=== PATIENT | female | born 1975 | race Caucasian/White ===

== ENCOUNTER 2019-04-15 17:23 | Emergency (ER) | payer MEDICAID ==
[~2019-04-15] VITALS: Ht 157.5 cm; Wt 45.5 kg
[2019-04-15 17:37] VITALS: BP 149/91
[2019-04-15] MEDS ORDERED: LIDOCAINE 1%, 10ML INFIL ONE (18:00)
--- NOTE | 2019-04-15 18:12 | NUR ---
PT AMBULATORY TO RME FROM LOBBY WITH STEADY GAIT. NAD NOTED. RESP REGULAR AND UNLABORED. JJ PA AT BEDSIDE FOR EVALUATION. CALL LIGHT IN REACH. FALL PRECAUTIONS IN PLACE.
--- NOTE | 2019-04-15 18:20 | NUR ---
EVELYNE PA AT BEDSIDE TO ADMIN LIDO
--- NOTE | 2019-04-15 18:47 | NUR ---
REPORT AND CARE TO JAYLON RAJAN AT THIS TIME.
[2019-04-15] MEDS ORDERED: ACETAMINOPHEN 325 MG TABLET ONE (21:18)
== END 2019-04-15 19:09 | disposition home or self-care (01) ==
LOC: ED 19:03
DX: L02.416 Cutaneous abscess of left lower limb (principal); F11.20 Opioid dependence, uncomplicated; F15.20 Other stimulant dependence, uncomplicated; F17.200 Nicotine dependence, unspecified, uncomplicated
CPT/HCPCS: 10060; 99283

== ENCOUNTER 2020-08-16 03:42 | Inpatient (IN) | payer MEDICAID ==
[~2020-08-16] VITALS: Ht 157.5 cm; Wt 52.3 kg
[~2020-08-16 03:42] MED LIST: AMOX1TAB64 PO; METH10TA2 PO; NICO-487 TD; ONDA4TAB13 PO; SULF1TAB24 PO
[2020-08-16] MEDS ORDERED: VANCOMYCIN PER PHARMACY MC ONE (05:00)
[2020-08-16] MEDS ORDERED: ONDANSETRON 2MG/ML, 2ML IVPush ONE (05:00)
[2020-08-16] MEDS ORDERED: MORPHINE SULFATE 4 MG/ML, 1ML IVPush PRN (05:00)
[2020-08-16] MEDS ORDERED: SODIUM CHLORIDE 0.9% 1,000ML IVBOLUS ONE (05:00)
[2020-08-16] MEDS ORDERED: MORPHINE SULFATE 4 MG/ML, 1ML ONE (05:13)
[2020-08-16] MEDS ORDERED: ONDANSETRON 2MG/ML, 2ML ONE (05:13)
[2020-08-16 05:27] LABS: BASOPHILS % (AUTO) 1 % (0-1); EOSINOPHILS % (AUTO) 1 % (1-7); LYMPHOCYTES % (AUTO) 13 % (22-44); MEAN CORPUSCULAR HEMOGLOBIN 25.8 pg (27.0-34.8); MEAN PLATELET VOLUME 8.1 fL (7.4-10.4); MONOCYTES % (AUTO) 6 % (2-9); NEUTROPHILS % (AUTO) 79 % (42-75); PLATELET COUNT 502 x10^3/uL (130-400); RED BLOOD COUNT 4.24 x10^6/uL (3.82-5.3); RED CELL DISTRIBUTION WIDTH 17.2 % (9.6-15.2)
[2020-08-16] MEDS ORDERED: VANCOMYCIN 1,200 MG in SODIUM CHLORIDE 0.9% 250 ML IV ONE (05:30)
[2020-08-16] MEDS ORDERED: LIDOCAINE-MPF 2% ,5ML SQ ONE (05:30)
[2020-08-16] MEDS ORDERED: LIDOCAINE-MPF 2% ,5ML ONE (05:32)
[2020-08-16 05:34] LABS: ALBUMIN 2.5 g/dL (3.4-5.0); ANION GAP 6 mmol/L (5-15); CALCIUM 8.3 mg/dL (8.5-10.1); CHLORIDE 103 mmol/L (98-107)
[2020-08-16 05:40] LABS: C-REACTIVE PROTEIN, QUANT 8.48 mg/dL (0.02-0.49)
[2020-08-16 06:00] LABS: MD SCAN
[2020-08-16] MEDS ORDERED: OMNIPAQUE 350 MG/ML, 100ML BOTTLE ONE (06:43)
--- NOTE | 2020-08-16 07:01 | NUR ---
REPORT TO PEDRO RAJAN
[2020-08-16] MEDS ORDERED: ACETAMINOPHEN 325 MG TABLET PO PRN (07:30)
[2020-08-16] MEDS ORDERED: IBUPROFEN 600 MG TABLET PO PRN (07:30)
[2020-08-16] MEDS ORDERED: LABETALOL 5MG/ML, 20ML IVPush PRN (07:30)
[2020-08-16] MEDS ORDERED: ENALAPRILAT 1.25 MG/ML, 2ML IVPush PRN (07:30)
[2020-08-16] MEDS ORDERED: LACTATED RINGERS 1,000 ML IV ONE (07:30)
[2020-08-16] MEDS ORDERED: VANCOMYCIN PER PHARMACY MC PRN (07:30)
--- NOTE | 2020-08-16 08:37 | NUR ---
PT RECEIVED MEAL TRAY. DENIES FURTHER NEEDS
[2020-08-16] MEDS ORDERED: PHARMACOKINETIC CONSULTATION MC ONE (10:00)
[2020-08-16] MEDS ORDERED: PHARMACOKINETIC MONITORING MC PRN (10:00)
[2020-08-16] MEDS: SENNA/DOCUSATE TABLET PO SCH (10:35)
[2020-08-16] MEDS: KETOROLAC 30 MG/1 ML IV PRN ×2 (11:18→21:03)
[2020-08-16] MEDS ORDERED: METHADONE 10 MG TABLET PO ONE (12:30)
[2020-08-16 12:31] VITALS: BP 102/64
[2020-08-16] MEDS: NICOTINE 21 MG/24 HR PATCH.TD24 TD SCH (13:14)
[2020-08-16] MEDS: METHADONE 10 MG TABLET PO SCH ×2 (13:16→21:03)
[2020-08-16] MEDS: PIPERACILLIN/TAZO/PMX 3.375GM 50 ML IV SCH ×2 (13:17→21:03)
[2020-08-16 20:14] VITALS: BP 121/74
[2020-08-16] MEDS ORDERED: METHADONE 5 MG TABLET PO ONE (23:00)
[2020-08-17 00:54] VITALS: BP 117/76
[2020-08-17] MEDS: PIPERACILLIN/TAZO/PMX 3.375GM 50 ML IV SCH ×3 (04:19→20:23)
[2020-08-17] MEDS: METHADONE 10 MG TABLET PO SCH ×3 (04:19→20:23)
[2020-08-17] MEDS: KETOROLAC 30 MG/1 ML IV PRN ×3 (04:44→20:23)
[2020-08-17] MEDS ORDERED: VANCOMYCIN PMX 1GM/200ML 200 ML IVPB SCH (05:00)
[2020-08-17 05:44] LABS: BASOPHILS % (AUTO) 1 % (0-1); EOSINOPHILS % (AUTO) 4 % (1-7); LYMPHOCYTES % (AUTO) 13 % (22-44); MEAN CORPUSCULAR HEMOGLOBIN 26.2 pg (27.0-34.8); MEAN PLATELET VOLUME 8.4 fL (7.4-10.4); MONOCYTES % (AUTO) 6 % (2-9); NEUTROPHILS % (AUTO) 77 % (42-75); PLATELET COUNT 444 x10^3/uL (130-400); RED BLOOD COUNT 3.74 x10^6/uL (3.82-5.3); RED CELL DISTRIBUTION WIDTH 17.6 % (9.6-15.2)
[2020-08-17 05:51] LABS: ALBUMIN 1.8 g/dL (3.4-5.0); ANION GAP 4 mmol/L (5-15); CHLORIDE 108 mmol/L (98-107); MD NO
[2020-08-17 05:54] LABS: ALKALINE PHOSPHATASE 75 U/L (45-117); BILIRUBIN,TOTAL 0.2 mg/dL (0.2-1.0); CREATININE 0.68 mg/dL (0.55-1.02); TOTAL PROTEIN 5.9 g/dL (6.4-8.2)
[2020-08-17 06:21] LABS: ALANINE AMINOTRANSFERASE < 6 U/L (12-78)
[2020-08-17 07:03] VITALS: BP 130/65
[2020-08-17] MEDS: SENNA/DOCUSATE TABLET PO SCH (09:00)
[2020-08-17] MEDS: NICOTINE 21 MG/24 HR PATCH.TD24 TD SCH (09:05)
[2020-08-17 12:29] VITALS: BP 118/77
[2020-08-17] MEDS ORDERED: METHADONE 10 MG TABLET PO ONE (17:00)
[2020-08-17] MEDS: ONDANSETRON ODT 4 MG PO PRN (18:23)
[2020-08-17 19:28] VITALS: BP 126/77
[2020-08-17] MEDS: MELATONIN 5 MG TABLET PO PRN (20:40)
[2020-08-17] MEDS: ONDANSETRON 2MG/ML, 2ML IVPush PRN (20:40)
[2020-08-17] MEDS: VANCOMYCIN PMX 1GM/200ML 200 ML IVPB SCH (22:29)
[2020-08-18 01:01] VITALS: BP 98/65
[2020-08-18] MEDS: PIPERACILLIN/TAZO/PMX 3.375GM 50 ML IV SCH (04:14)
[2020-08-18] MEDS: METHADONE 10 MG TABLET PO SCH ×3 (04:14→21:13)
[2020-08-18 06:21] LABS: BASOPHILS % (AUTO) 2 % (0-1); EOSINOPHILS % (AUTO) 6 % (1-7); LYMPHOCYTES % (AUTO) 20 % (22-44); MEAN CORPUSCULAR HGB CONC 31.7 g/dL (32.4-35.8); MEAN PLATELET VOLUME 8.1 fL (7.4-10.4); MONOCYTES % (AUTO) 6 % (2-9); NEUTROPHILS % (AUTO) 67 % (42-75); PLATELET COUNT 462 x10^3/uL (130-400); RED BLOOD COUNT 4.29 x10^6/uL (3.82-5.3); RED CELL DISTRIBUTION WIDTH 17.5 % (9.6-15.2)
[2020-08-18 06:33] LABS: ALBUMIN 1.9 g/dL (3.4-5.0); ANION GAP 4 mmol/L (5-15); CALCIUM 8.3 mg/dL (8.5-10.1); CHLORIDE 106 mmol/L (98-107); CREATININE 0.85 mg/dL (0.55-1.02)
[2020-08-18 06:34] LABS: MD NO
[2020-08-18 07:16] VITALS: BP 101/59
[2020-08-18] MEDS: SENNA/DOCUSATE TABLET PO SCH (09:00)
[2020-08-18] MEDS: NICOTINE 21 MG/24 HR PATCH.TD24 TD SCH (09:17)
[2020-08-18] MEDS: KETOROLAC 30 MG/1 ML IV PRN ×2 (09:33→16:02)
[2020-08-18] MEDS: AMPICILLIN/SULBACTAM 3 GM in SODIUM CHLORIDE 0.9% 100 ML IV SCH ×2 (10:34→17:58)
[2020-08-18 12:58] VITALS: BP 103/64
[2020-08-18] MEDS: VANCOMYCIN PMX 1GM/200ML 200 ML IVPB SCH (15:56)
[2020-08-18 18:59] VITALS: BP 109/71
[2020-08-18] MEDS: ONDANSETRON 2MG/ML, 2ML IVPush PRN (20:49)
[2020-08-19 00:47] VITALS: BP 115/66
[2020-08-19] MEDS: BUTALB/APAP/CAFFEINE 50MG/325MG/40MG PO PRN ×2 (00:54→01:27)
[2020-08-19] MEDS: MELATONIN 5 MG TABLET PO PRN ×2 (00:57→21:48)
[2020-08-19] MEDS: KETOROLAC 30 MG/1 ML IV PRN ×3 (01:07→18:08)
[2020-08-19] MEDS: AMPICILLIN/SULBACTAM 3 GM in SODIUM CHLORIDE 0.9% 100 ML IV SCH ×3 (02:04→16:51)
[2020-08-19 05:18] LABS: ALBUMIN 1.9 g/dL (3.4-5.0); ANION GAP 4 mmol/L (5-15); CALCIUM 8.6 mg/dL (8.5-10.1); CHLORIDE 107 mmol/L (98-107)
[2020-08-19 05:19] LABS: CREATININE 0.84 mg/dL (0.55-1.02)
[2020-08-19] MEDS: METHADONE 10 MG TABLET PO SCH ×3 (05:21→21:48)
[2020-08-19 05:23] LABS: BASOPHILS % (AUTO) 1 % (0-1); EOSINOPHILS % (AUTO) 7 % (1-7); LYMPHOCYTES % (AUTO) 22 % (22-44); MEAN CORPUSCULAR HEMOGLOBIN 26.3 pg (27.0-34.8); MEAN CORPUSCULAR HGB CONC 32.4 g/dL (32.4-35.8); MEAN PLATELET VOLUME 7.9 fL (7.4-10.4); MONOCYTES % (AUTO) 7 % (2-9); NEUTROPHILS % (AUTO) 64 % (42-75); PLATELET COUNT 497 x10^3/uL (130-400); RED BLOOD COUNT 3.74 x10^6/uL (3.82-5.3); RED CELL DISTRIBUTION WIDTH 17.5 % (9.6-15.2)
[2020-08-19 05:29] LABS: MD NO
[2020-08-19 07:29] VITALS: BP 101/61
[2020-08-19] MEDS: SENNA/DOCUSATE TABLET PO SCH (09:00)
[2020-08-19] MEDS: NICOTINE 21 MG/24 HR PATCH.TD24 TD SCH (09:34)
[2020-08-19] MEDS: VANCOMYCIN PMX 1GM/200ML 200 ML IVPB SCH ×2 (10:06→22:19)
[2020-08-19 12:39] VITALS: BP 110/65
[2020-08-19] MEDS ORDERED: OMNIPAQUE 350 MG/ML, 100ML BOTTLE ONE (16:06)
[2020-08-19 20:10] VITALS: BP 119/75
[2020-08-20 00:43] VITALS: BP 116/74
[2020-08-20] MEDS: AMPICILLIN/SULBACTAM 3 GM in SODIUM CHLORIDE 0.9% 100 ML IV SCH ×3 (02:11→17:42)
[2020-08-20 05:11] LABS: BASOPHILS % (AUTO) 1 % (0-1); EOSINOPHILS % (AUTO) 8 % (1-7); LYMPHOCYTES % (AUTO) 16 % (22-44); MEAN CORPUSCULAR HGB CONC 32.1 g/dL (32.4-35.8); MEAN PLATELET VOLUME 8.1 fL (7.4-10.4); MONOCYTES % (AUTO) 5 % (2-9); NEUTROPHILS % (AUTO) 70 % (42-75); PLATELET COUNT 460 x10^3/uL (130-400); RED BLOOD COUNT 3.75 x10^6/uL (3.82-5.3)
[2020-08-20 05:17] LABS: CHLORIDE 105 mmol/L (98-107)
[2020-08-20 05:18] LABS: MD NO
[2020-08-20] MEDS: METHADONE 10 MG TABLET PO SCH ×3 (05:26→21:27)
[2020-08-20 05:32] LABS: ANION GAP 5 mmol/L (5-15)
[2020-08-20 06:58] LABS: HCT (SEDRATE) 30.3 % (34.6-47.8)
[2020-08-20 07:33] VITALS: BP 125/77
[2020-08-20] MEDS: SENNA/DOCUSATE TABLET PO SCH (09:00)
[2020-08-20] MEDS: NICOTINE 21 MG/24 HR PATCH.TD24 TD SCH (10:31)
[2020-08-20] MEDS: VANCOMYCIN PMX 1GM/200ML 200 ML IVPB SCH ×2 (10:58→23:02)
[2020-08-20] MEDS: KETOROLAC 30 MG/1 ML IV PRN ×2 (11:10→20:31)
[2020-08-20 12:49] VITALS: BP 128/77
[2020-08-20 18:53] VITALS: BP 119/76
[2020-08-20] MEDS: MELATONIN 5 MG TABLET PO PRN (21:38)
[2020-08-21] MEDS: AMPICILLIN/SULBACTAM 3 GM in SODIUM CHLORIDE 0.9% 100 ML IV SCH ×3 (02:09→17:35)
[2020-08-21 02:10] VITALS: BP 125/84
[2020-08-21] MEDS: METHADONE 10 MG TABLET PO SCH ×3 (05:26→21:26)
[2020-08-21 05:58] LABS: BASOPHILS % (AUTO) 1 % (0-1); EOSINOPHILS % (AUTO) 9 % (1-7); LYMPHOCYTES % (AUTO) 25 % (22-44); MEAN CORPUSCULAR HEMOGLOBIN 25.8 pg (27.0-34.8); MEAN PLATELET VOLUME 7.9 fL (7.4-10.4); MONOCYTES % (AUTO) 7 % (2-9); NEUTROPHILS % (AUTO) 57 % (42-75); PLATELET COUNT 491 x10^3/uL (130-400); RED BLOOD COUNT 4.08 x10^6/uL (3.82-5.3); RED CELL DISTRIBUTION WIDTH 17.6 % (9.6-15.2)
[2020-08-21 06:28] LABS: MD NO
[2020-08-21 07:39] VITALS: BP 115/77
[2020-08-21] MEDS: SENNA/DOCUSATE TABLET PO SCH (09:00)
[2020-08-21] MEDS: NICOTINE 21 MG/24 HR PATCH.TD24 TD SCH (09:42)
[2020-08-21] MEDS ORDERED: MORPHINE SULFATE 4 MG/ML, 1ML ONE (11:57)
[2020-08-21] MEDS ORDERED: morphine SULFATE/PF 0.5 MG/ML, 10ML IV ONE (12:00)
[2020-08-21 13:51] VITALS: BP 107/64
[2020-08-21 19:39] VITALS: BP 123/73
[2020-08-21] MEDS: MELATONIN 5 MG TABLET PO PRN (20:23)
[2020-08-21] MEDS: VANCOMYCIN PMX 1GM/200ML 200 ML IVPB SCH (21:01)
[2020-08-22 02:01] VITALS: BP 117/75
[2020-08-22] MEDS: AMPICILLIN/SULBACTAM 3 GM in SODIUM CHLORIDE 0.9% 100 ML IV SCH ×3 (02:04→18:01)
[2020-08-22] MEDS: METHADONE 10 MG TABLET PO SCH ×3 (05:22→21:30)
[2020-08-22 07:44] VITALS: BP 122/74
[2020-08-22] MEDS: SENNA/DOCUSATE TABLET PO SCH (08:25)
[2020-08-22] MEDS: NICOTINE 21 MG/24 HR PATCH.TD24 TD SCH (08:26)
[2020-08-22 13:27] VITALS: BP 106/73
[2020-08-22] MEDS: VANCOMYCIN PMX 1GM/200ML 200 ML IVPB SCH (14:42)
[2020-08-22 19:40] VITALS: BP 129/75
[2020-08-22] MEDS: MELATONIN 5 MG TABLET PO PRN (21:30)
[2020-08-23 01:51] VITALS: BP 105/66
[2020-08-23] MEDS: AMPICILLIN/SULBACTAM 3 GM in SODIUM CHLORIDE 0.9% 100 ML IV SCH ×3 (02:00→18:08)
[2020-08-23] MEDS: METHADONE 10 MG TABLET PO SCH ×3 (05:29→21:54)
[2020-08-23 07:34] VITALS: BP 110/66
[2020-08-23] MEDS: VANCOMYCIN PMX 1GM/200ML 200 ML IVPB SCH (08:43)
[2020-08-23] MEDS: SENNA/DOCUSATE TABLET PO SCH (08:44)
[2020-08-23] MEDS: NICOTINE 21 MG/24 HR PATCH.TD24 TD SCH (08:44)
[2020-08-23 13:28] VITALS: BP 111/56
[2020-08-23] MEDS: ONDANSETRON ODT 4 MG PO PRN (18:07)
[2020-08-23 18:58] VITALS: BP 117/76
[2020-08-23] MEDS: MELATONIN 5 MG TABLET PO PRN (21:04)
[2020-08-24 01:57] VITALS: BP 102/64
[2020-08-24] MEDS: AMPICILLIN/SULBACTAM 3 GM in SODIUM CHLORIDE 0.9% 100 ML IV SCH ×3 (02:06→17:52)
[2020-08-24] MEDS: VANCOMYCIN PMX 1GM/200ML 200 ML IVPB SCH ×2 (02:59→21:05)
[2020-08-24] MEDS: METHADONE 10 MG TABLET PO SCH ×3 (05:42→21:05)
[2020-08-24 06:55] LABS: BASOPHILS % (AUTO) 1 % (0-1); EOSINOPHILS % (AUTO) 8 % (1-7); LYMPHOCYTES % (AUTO) 27 % (22-44); MEAN CORPUSCULAR HGB CONC 31.9 g/dL (32.4-35.8); MEAN PLATELET VOLUME 7.8 fL (7.4-10.4); MONOCYTES % (AUTO) 9 % (2-9); NEUTROPHILS % (AUTO) 55 % (42-75); PLATELET COUNT 508 x10^3/uL (130-400); RED BLOOD COUNT 4.26 x10^6/uL (3.82-5.3); RED CELL DISTRIBUTION WIDTH 17.4 % (9.6-15.2)
[2020-08-24 06:57] LABS: MD NO
[2020-08-24 06:58] LABS: ANION GAP 4 mmol/L (5-15); C-REACTIVE PROTEIN, QUANT 0.93 mg/dL (0.02-0.49); CALCIUM 8.6 mg/dL (8.5-10.1); CHLORIDE 104 mmol/L (98-107); CREATININE 0.94 mg/dL (0.55-1.02); HCT (SEDRATE) 34.7 % (34.6-47.8)
[2020-08-24 07:30] VITALS: BP 104/67
[2020-08-24] MEDS: NICOTINE 21 MG/24 HR PATCH.TD24 TD SCH (08:49)
[2020-08-24] MEDS: SENNA/DOCUSATE TABLET PO SCH (08:50)
[2020-08-24] MEDS: ONDANSETRON ODT 4 MG PO PRN ×2 (09:06→21:05)
[2020-08-24 13:47] VITALS: BP 97/62
[2020-08-24 18:57] VITALS: BP 128/77
[2020-08-24] MEDS: MELATONIN 5 MG TABLET PO PRN (21:05)
[2020-08-25 00:39] VITALS: BP 102/74
[2020-08-25] MEDS: AMPICILLIN/SULBACTAM 3 GM in SODIUM CHLORIDE 0.9% 100 ML IV SCH ×2 (01:57→09:07)
[2020-08-25] MEDS: METHADONE 10 MG TABLET PO SCH ×2 (05:21→13:13)
[2020-08-25 07:12] VITALS: BP 112/68
[2020-08-25] MEDS: SENNA/DOCUSATE TABLET PO SCH (08:58)
[2020-08-25] MEDS: NICOTINE 21 MG/24 HR PATCH.TD24 TD SCH (08:58)
[2020-08-25] MEDS ORDERED: MELA5TAB14 PO (12:35)
[2020-08-25] MEDS ORDERED: NICO-487 TD (12:35)
[2020-08-25] MEDS ORDERED: ONDA4TAB13 PO (12:35)
[2020-08-25] MEDS ORDERED: AMOX1TAB64 PO (12:35)
[2020-08-25] MEDS ORDERED: ACET325T26 PO (12:35)
[2020-08-25] MEDS ORDERED: Senna/Docusate PO (12:35)
[2020-08-25] MEDS ORDERED: METH10TA2 PO (12:35)
[2020-08-25] MEDS ORDERED: CEFT1FRO2 IV (12:35)
[2020-08-25] MEDS: ONDANSETRON ODT 4 MG PO PRN (13:13)
[2020-08-25 13:16] VITALS: BP 101/56
[2020-08-25] MEDS: VANCOMYCIN PMX 1GM/200ML 200 ML IVPB SCH (15:38)
== END 2020-08-25 17:21 | DRG 603 ==
LOC: ED 06:35 → EDIP 07:56 → 3N 09:44
PROVIDERS: ADMIT Family Medicine; ATTEND Internal Medicine
PROC: 0X9D0ZZ Drainage of Right Lower Arm, Open Approach (ICD-10-PCS; principal; 2020-08-16)
DX: L03.113 Cellulitis of right upper limb (principal); E44.1 Mild protein-calorie malnutrition; N17.9 Acute kidney failure, unspecified; D64.9 Anemia, unspecified; L02.413 Cutaneous abscess of right upper limb; E87.5 Hyperkalemia; F11.10 Opioid abuse, uncomplicated; F43.10 Post-traumatic stress disorder, unspecified; Z87.820 Personal history of traumatic brain injury; Z88.0 Allergy status to penicillin; Z71.6 Tobacco abuse counseling; Z68.21 Body mass index [BMI] 21.0-21.9, adult; Z72.0 Tobacco use
CPT/HCPCS: 10060; 36415; 80048; 80053; 80069; 80202; 82040; 83605; 83735; 84145; 85025; 85651; 86140; 87040; 87070; 87205; 93306; 96361; 96374; 96375; 99285; G0378; J0295; J1885; J2274; J2405; J2543; J3370; Q0162; Q9967; J2270; J7030; J7050; J7120

== ENCOUNTER 2021-02-21 04:45 | Emergency (ER) | payer MEDICAID ==
[~2021-02-21] VITALS: Ht 157.5 cm; Wt 48.3 kg
[~2021-02-21 04:45] MED LIST changes: +ACET325T26 PO; +CEFT1FRO2 IV; +MELA5TAB14 PO; -NICO-487 TD; +NICO-587 TD; +SULF-23 PO; -SULF1TAB24 PO; +Senna/Docusate PO
[2021-02-21] MEDS ORDERED: LIDOCAINE-MPF 1%, 5ML INFIL ONE (05:30)
[2021-02-21] MEDS ORDERED: LIDOCAINE-MPF 1%, 5ML ONE (05:38)
[2021-02-21 05:59] LABS: BASOPHILS % (AUTO) 1 % (0-1); EOSINOPHILS % (AUTO) 1 % (1-7); LYMPHOCYTES % (AUTO) 13 % (22-44); MEAN CORPUSCULAR HGB CONC 31.9 g/dL (32.4-35.8); MEAN PLATELET VOLUME 7.6 fL (7.4-10.4); MONOCYTES % (AUTO) 5 % (2-9); NEUTROPHILS % (AUTO) 80 % (42-75); PLATELET COUNT 679 x10^3/uL (130-400); RED BLOOD COUNT 4.15 x10^6/uL (3.82-5.3); RED CELL DISTRIBUTION WIDTH 18.7 % (9.6-15.2)
[2021-02-21 06:01] LABS: MD NO
--- NOTE | 2021-02-21 06:12 | NUR ---
US AT BEDSIDE AT THIS TIME
[2021-02-21 06:21] VITALS: BP 116/75
--- NOTE | 2021-02-21 07:00 | NUR ---
assumed care of pt. report from Noemí RAJAN pt here for abscess to RLE. I&D at bedside
--- NOTE | 2021-02-21 07:40 | NUR ---
tech at bedside for wound irrigation
--- NOTE | 2021-02-21 08:20 | NUR ---
DRESSING PLACED RIGHT LOWER EXTREMITY AND DISCHARGE PAPERS GIVEN.
--- NOTE | 2021-02-21 08:42 | NUR ---
this pt was D/C by another RN
== END 2021-02-21 08:26 | disposition home or self-care (01) ==
LOC: ED 08:20
DX: L03.116 Cellulitis of left lower limb (principal); L02.416 Cutaneous abscess of left lower limb; F17.210 Nicotine dependence, cigarettes, uncomplicated
CPT/HCPCS: 10060; 36415; 85025; 99406

== ENCOUNTER 2021-06-07 02:54 | Inpatient (IN) | payer MEDICAID ==
[~2021-06-07] VITALS: Ht 157.5 cm; Wt 49.5 kg
--- NOTE | 2021-06-07 03:16 | NUR ---
PT PRESENTS TO THE ER FOR AN ABCESS ON HER RIGHT CALF, PTS CALF IS RED AND INFLAMED, PT STATES THIS HAS BEEN GOING ON FOR QUITE SOME TIME NOW, PT STATES THAT SHE HAS A WHOLE BUNCH OF LITTLE ABCESS' GOING ON AND THINKS HER BODY IS NOT FIGHTING IT WELL
[2021-06-07] MEDS ORDERED: LIDOCAINE 1%, 10ML INFIL ONE (03:30)
[2021-06-07] MEDS ORDERED: SODIUM CHLORIDE FLUSH 10ML SYR IVF ONE (03:30)
[2021-06-07] MEDS ORDERED: SODIUM CHLORIDE 0.9% 1,000ML IVBOLUS ONE (03:30)
[2021-06-07] MEDS ORDERED: PHARMACOKINETIC CONSULTATION MC ONE ×2 (03:30→06:30)
[2021-06-07] MEDS ORDERED: CEFAZOLIN PMX 1GM/50ML 50 ML IV ONE (03:30)
[2021-06-07] MEDS ORDERED: VANCOMYCIN PER PHARMACY MC PRN ×2 (03:30→06:00)
[2021-06-07] MEDS ORDERED: PROPOFOL 10 MG/ML, 20ML IVPush ONE (03:30)
[2021-06-07] MEDS ORDERED: PROPOFOL 10 MG/ML, 20ML ONE ×2 (03:41→03:50)
[2021-06-07 04:00] LABS: BASOPHILS % (AUTO) 1 % (0-1); EOSINOPHILS % (AUTO) 1 % (1-7); LYMPHOCYTES % (AUTO) 13 % (22-44); MEAN CORPUSCULAR HEMOGLOBIN 24.1 pg (27.0-34.8); MEAN CORPUSCULAR HGB CONC 31.9 g/dL (32.4-35.8); MONOCYTES % (AUTO) 5 % (2-9); NEUTROPHILS % (AUTO) 80 % (42-75); PLATELET COUNT 419 x10^3/uL (130-400); RED BLOOD COUNT 4.09 x10^6/uL (3.82-5.3); RED CELL DISTRIBUTION WIDTH 17.9 % (9.6-15.2)
[2021-06-07] MEDS ORDERED: VANCOMYCIN 1,200 MG in SODIUM CHLORIDE 0.9% 250 ML IV ONE (04:00)
[2021-06-07 04:06] LABS: ALANINE AMINOTRANSFERASE 8 U/L (12-78); ALBUMIN 2.3 g/dL (3.4-5.0); ANION GAP 5 mmol/L (5-15); CHLORIDE 103 mmol/L (98-107); CREATININE 0.69 mg/dL (0.55-1.02)
[2021-06-07 04:08] LABS: ALKALINE PHOSPHATASE 91 U/L (45-117); BILIRUBIN,TOTAL 0.3 mg/dL (0.2-1.0); TOTAL PROTEIN 8.2 g/dL (6.4-8.2)
[2021-06-07] MEDS ORDERED: LIDOCAINE-MPF 2% ,5ML ONE (04:28)
--- NOTE | 2021-06-07 04:34 | NUR ---
PT ROOM SETUP FOR PROCEDURAL SITUATION: 107/64BP, 85HR, 16RR, 100% 02 0435: 20MG PROPOFOL GIVEN 0435:20MG 0436:20MG 0436:20MG 0437:10MG 0438:10MG 0438 PT SEDATED COMPLETELY 0438: 109/67, 88HR, 18RR, 100% O2 0445: PROCEDURE COMPLETE 0445: 100/63, 79HR, 16RR, 100% O2 0450: PT A/OX4, NAD AT THIS TIME 0450: 113/68, 81RR, 14RR, 100% 0500: PT A/OX4, PT CONVERSING WITH THIS RN AT PTS BASELINE, PT TOLERATED PROCEDURE WELL, PT HAS NO COMPLAINTS OTHER THAN FEELING A LITTLE TIRED, VSS: 110/60, 82HR, 16RR, 100% O2 AT ROOM AIR
[2021-06-07] MEDS ORDERED: ONDANSETRON 2MG/ML, 2ML ONE (05:07)
[2021-06-07] MEDS ORDERED: MORPHINE SULFATE 4 MG/ML, 1ML ONE (05:07)
[2021-06-07] MEDS ORDERED: CEFAZOLIN PMX 1GM/50ML 50 ML ONE (05:08)
[2021-06-07] MEDS ORDERED: MORPHINE SULFATE 4 MG/ML, 1ML IVPush PRN (05:30)
[2021-06-07] MEDS ORDERED: ONDANSETRON 2MG/ML, 2ML IVPush ONE (05:30)
[2021-06-07] MEDS ORDERED: LABETALOL 5MG/ML, 20ML IVPush PRN (06:00)
[2021-06-07] MEDS ORDERED: NICOTINE 14MG/24 HR PATCH.TD24 TD ONE (06:00)
[2021-06-07] MEDS ORDERED: ONDANSETRON 2MG/ML, 2ML IVPush PRN (06:00)
[2021-06-07] MEDS ORDERED: KETOROLAC 30 MG/1 ML IV PRN (06:00)
[2021-06-07] MEDS ORDERED: METHADONE 10 MG TABLET PO PRN (06:00)
[2021-06-07 06:19] VITALS: BP 114/75
[2021-06-07] MEDS ORDERED: PHARMACOKINETIC MONITORING MC PRN (06:30)
[2021-06-07] MEDS: ENOXAPARIN 40 MG/0.4 ML SQ SCH ×2 (06:36→06:38)
[2021-06-07 07:25] VITALS: BP 103/66
[2021-06-07] MEDS: CEFAZOLIN PMX 1GM/50ML 50 ML IV SCH ×2 (11:01→19:58)
[2021-06-07] MEDS: METHADONE 10 MG TABLET PO PRN ×2 (13:48→21:45)
[2021-06-07 13:49] VITALS: BP 115/65
[2021-06-07] MEDS: HYDROmorphone 1 MG/ML, 1ML INJ IV PRN (16:07)
[2021-06-07] MEDS: VANCOMYCIN 1,000 MG in SODIUM CHLORIDE 0.9% 100 ML IV SCH (17:45)
[2021-06-07 20:00] VITALS: BP 112/72
[2021-06-07] MEDS: ACETAMINOPHEN 325 MG TABLET PO PRN (23:08)
[2021-06-08 00:37] VITALS: BP 114/69
[2021-06-08] MEDS: VANCOMYCIN 1,000 MG in SODIUM CHLORIDE 0.9% 100 ML IV SCH ×2 (05:29→17:42)
[2021-06-08] MEDS: ACETAMINOPHEN 325 MG TABLET PO PRN (05:32)
[2021-06-08] MEDS: ENOXAPARIN 40 MG/0.4 ML SQ SCH (06:33)
[2021-06-08] MEDS: CEFAZOLIN PMX 1GM/50ML 50 ML IV SCH ×3 (07:43→23:54)
[2021-06-08] MEDS: METHADONE 10 MG TABLET PO PRN ×3 (07:48→23:54)
[2021-06-08 08:00] LABS: BASOPHILS % (AUTO) 1 % (0-1); EOSINOPHILS % (AUTO) 3 % (1-7); LYMPHOCYTES % (AUTO) 22 % (22-44); MEAN CORPUSCULAR HEMOGLOBIN 23.9 pg (27.0-34.8); MEAN CORPUSCULAR HGB CONC 31.6 g/dL (32.4-35.8); MONOCYTES % (AUTO) 6 % (2-9); NEUTROPHILS % (AUTO) 68 % (42-75); PLATELET COUNT 419 x10^3/uL (130-400); RED BLOOD COUNT 4.15 x10^6/uL (3.82-5.3); RED CELL DISTRIBUTION WIDTH 17.9 % (9.6-15.2)
[2021-06-08 08:05] VITALS: BP 121/80
[2021-06-08] MEDS: HYDROmorphone 1 MG/ML, 1ML INJ IV PRN (10:31)
[2021-06-08 13:51] VITALS: BP 109/69
[2021-06-08 20:21] VITALS: BP 134/84
[2021-06-09 03:56] VITALS: BP 114/70
[2021-06-09] MEDS: VANCOMYCIN 1,000 MG in SODIUM CHLORIDE 0.9% 100 ML IV SCH ×2 (05:39→17:27)
[2021-06-09] MEDS ORDERED: METH10TA2 PO (06:53)
[2021-06-09] MEDS: ENOXAPARIN 40 MG/0.4 ML SQ SCH (07:00)
[2021-06-09 08:19] VITALS: BP 135/90
[2021-06-09] MEDS: CEFAZOLIN PMX 1GM/50ML 50 ML IV SCH ×2 (08:28→16:48)
[2021-06-09] MEDS: METHADONE 10 MG TABLET PO PRN (08:28)
[2021-06-09] MEDS ORDERED: AMOX1TAB64 PO (10:37)
[2021-06-09] MEDS ORDERED: SULF1TAB24 PO (10:37)
[2021-06-09 14:50] VITALS: BP 112/73
[2021-06-09] MEDS ORDERED: HYDROmorphone 1 MG/ML, 1ML INJ IVPush ONE (16:30)
[2021-06-09] MEDS ORDERED: METHADONE 10 MG TABLET PO PRN (17:30)
== END 2021-06-09 20:14 | disposition home or self-care (01) | DRG 603 ==
LOC: ED 04:00 → EDIP 04:45 → ED 04:58 → 3N 06:04
PROVIDERS: ADMIT Family Medicine; ATTEND Family Medicine
PROC: 0H9BXZZ Drainage of Right Upper Arm Skin, External Approach (ICD-10-PCS; principal; 2021-06-08)
DX: L02.413 Cutaneous abscess of right upper limb (principal); L03.115 Cellulitis of right lower limb; L02.415 Cutaneous abscess of right lower limb; D50.9 Iron deficiency anemia, unspecified; F15.10 Other stimulant abuse, uncomplicated; F11.90 Opioid use, unspecified, uncomplicated; F17.210 Nicotine dependence, cigarettes, uncomplicated; Z88.0 Allergy status to penicillin; Z87.820 Personal history of traumatic brain injury; Z91.018 Allergy to other foods
CPT/HCPCS: 10060; 36415; 36556; 80053; 80202; 83605; 84145; 85025; 87040; 87070; 87077; 87205; 96374; 96375; 99152; G0378; J0690; J1170; J1650; J2405; J2704; J3370; J2270; J7030; J7050